=== PATIENT | female | born 1940 | race Two or more races ===

== ENCOUNTER → 2016-12-02 | Outpatient (CLI) | payer MEDICARE, MEDICAID | END | disposition home or self-care (01) | LOC: PVL 09:09 | DX: I77.89 Other specified disorders of arteries and arterioles (principal) ==

== ENCOUNTER → 2017-02-23 | Outpatient (CLI) | payer MEDICARE, MEDICAID | END | disposition home or self-care (01) | LOC: PVL 08:59 | DX: I74.3 Embolism and thrombosis of arteries of the lower extremities (principal); I73.9 Peripheral vascular disease, unspecified | CPT/HCPCS: 93923 ==